=== PATIENT | male | born 1990 | race Caucasian/White ===

== ENCOUNTER 2018-10-30 21:28 | Emergency (ER) | payer SELFPAY ==
[2018-10-30] MEDS ORDERED: LEVETIRACETAM 500 MG/NACL-ISO 500 MG/100 ML RTUPB IV ONE (22:05)
[2018-10-30] MEDS ORDERED: NORMAL SALINE 500 ML IV ONE (22:06)
[2018-10-30 22:40] LABS: ABSOLUTE EOSINOPHILS # (AUTO) 0.1 10^3/uL (0.0-0.6); ABSOLUTE LYMPHOCYTES (AUTO) 1.7 10^3/uL (0.5-4.7); ABSOLUTE MONOCYTES (AUTO) 0.5 10^3/uL (0.1-1.4); ABSOLUTE NEUT (AUTO) 4.6 10^3/uL (1.7-8.2); BASOPHILS % (AUTO) 0.3 % (0-2); EOSINOPHILS % (AUTO) 0.9 % (0-6); HEMATOCRIT 50.1 % (37.9-51.0); HEMOGLOBIN 17.6 g/dL (13.5-17.0); LYMPHOCYTES % (AUTO) 24.6 % (13-45); MEAN CORPUSCULAR HEMOGLOBIN 32.3 pg (27.0-33.4); MEAN CORPUSCULAR VOLUME 92 fl (80-97); MONOCYTES % (AUTO) 7.4 % (3-13); PLATELET COUNT 331 10^3/uL (150-450); RED BLOOD COUNT 5.43 10^6/uL (4.35-5.55); RED CELL DISTRIBUTION WIDTH 14.1 % (11.5-14.0); SEGMENTED NEUTROPHILS % (AUTO) 66.8 % (42-78); TOTAL CELLS COUNTED % (AUTO) 100 %; WHITE BLOOD COUNT 6.9 10^3/uL (4.0-10.5)
[2018-10-30 22:43] LABS: ANION GAP 19 (5-19); BLOOD UREA NITROGEN 13 mg/dL (7-20); CALCIUM 8.6 mg/dL (8.4-10.2); CARBON DIOXIDE 19 mmol/L (22-30); CHLORIDE 108 mmol/L (98-107); GLUCOSE 105 mg/dL (75-110); POTASSIUM 3.7 mmol/L (3.6-5.0)
--- NOTE | 2018-10-30 22:45 | RADIOLOGY REPORT (SQ) ---
CLINICAL DATA: trauma TECHNICAL DATA: Multiple axial CT images of the brain were performed followed by sagittal and coronal reconstructed images. The CT study is performed according to ALARA (as low as reasonably achievable) or ALARA/IMAGE GENTLY, with automatic adjustment of mA and/or kV according to patient size. Performed on: 10/30/2018 at 10:12 PM Comparisons: None. FINDINGS: There is no evidence of mass, acute mass effect or midline shift. There are no acute extra-axial fluid collections. There is no evidence of acute intracranial hemorrhage. The cerebral sulci and ventricles are normal in size and configuration. There are no focal abnormal areas of increased or decreased attenuation. . There is no significant mucosal thickening of the paranasal sinuses. The mastoid air cells are clear. The orbital contents are grossly unremarkable. No acute osseous abnormalities are identified. No focal soft tissue abnormalities are identified. IMPRESSION: There is no evidence of acute intracranial pathology.
--- NOTE | 2018-10-30 22:48 | RADIOLOGY REPORT (SQ) ---
CLINICAL DATA: 27-year-old male status post trauma with neck pain. TECHNICAL DATA: Multiple high-resolution thin axial CT images were performed through the cervical spine followed by sagittal and coronal reconstructed images. The CT study is performed according to ALARA (as low as reasonably achievable) or ALARA/IMAGE GENTLY, with automatic adjustment of mA and/or kV according to patient size. Performed on: 10/30/2018 at 10:16 PM COMPARISONS: None. FINDINGS: The cervical vertebrae are normal in height. There is normal alignment of the vertebrae. The disc spaces are well preserved in height. Bone mineralization is normal. The atlanto-axial articulation is preserved and the odontoid process is intact. There is normal alignment of the facet joints on the parasagittal images. There are no significant degenerative changes of the cervical spine. There is no evidence of acute fracture or subluxation. There is no significant canal stenosis. There is no significant neural foraminal stenosis. The paravertebral and paraspinal soft tissues are unremarkable. The lung apices are clear. There are minimal paraseptal emphysematous changes. IMPRESSION: No evidence of acute osseous injury involving the cervical spine.
--- NOTE | 2018-10-30 22:55 | ER Document Report ---
ED General - General Chief Complaint: Probable Seizure Stated Complaint: POSSIBLE SEIZURE Time Seen by Provider: 10/30/18 22:03 Notes: Patient is a 27-year-old male who presents with complaints of a seizure. Currently patient cannot give any history as he is sedated from Ativan that was given to him in a month. Is probably also postictal. Apparently patient was having seizures when [facility] arrived and they gave him 5 mg of Ativan total. History is per report from the nurse who spoke with paramedics. Family patient has history of seizures whenever he drinks alcohol. Patient was actively seizing on [facility] arrived and gave him the Ativan. He has had no further seizure activity since then. No further history is known about the patient. It is unclear if patient fell and started seizing or if he was already on the ground when he started seizing. - Related Data Allergies/Adverse Reactions: No Known Allergies Allergy (Verified 10/31/18 00:32) Past Medical History - Social History Smoking Status: Unknown if Ever Smoked Frequency of alcohol use: unknown how often Drug Abuse: Other - unknown Family History: Reviewed & Not Pertinent Patient has suicidal ideation: No Patient has homicidal ideation: No Renal/ Medical History: Denies: Hx Peritoneal Dialysis Review of Systems - Review of Systems -: Yes ROS unobtainable due to patient's medical condition - patient currently sedated Physical Exam - Vital signs Vitals: Temp Resp Pulse Ox 98.1 F 21 H 96 10/30/18 21:33 10/30/18 21:33 10/30/18 21:33 - Notes Notes: General Appearance: She is currently sedated. He does have good gag reflex. He does respond some physically to sternal rub but does not respond verbally. He is in no distress. Vitals: reviewed, See vital signs table. Head: no swelling or tenderness to the head Eyes: PERRL, EOMI, Conjuctiva clear Mouth: No decreasd moisture Throat: No tonsillar inflammation, No airway obstruction, No lymphadenopathy Neck: Supple, no neck tenderness, patient has some scratches and redness to the right side of the neck. Lungs: No wheezing, No rales, No rhonci, No accessory muscle use, good air exchange bilaterally. Heart: Normal rate, Regular rythm, No murmur, no rub Abdomen: Normal BS, soft, No rigidity, he does not seem to flinch or show signs of pain when I push firmly on abdomen. Extremities: good pulses in all extremities, no swelling or tenderness in the extremities, no edema. Skin: warm, dry, appropriate color, no rash Neuro: Patient is currently sedated. He does have good gag reflex. He does respond some to painful stimuli. He does not make any verbal contributions at this time. Course - Re-evaluation Re-evalutation: 10/31/18 02:36 Patient currently resting comfortably. No further seizure activity. Vital signs have remained stable. 10/31/18 04:41 Patient is now awake and alert. He says that he does not remember at all what happened. He last members being at his hotel room. He says that he does not have a history of seizures however he seems to go back and forth about this. His ultimate response is that he is unsure if he is ever had a seizure in the past. He does not stricken symmetrical today. He does not drink alcohol on a daily basis. He denies any drug use. Denies recent fevers or infections. He says he otherwise feels well now has no further concerns or complaints. I did stand the patient to walk. He was at first a little wobbly in his feet but then did well. I will give him some clothes and some socks and agrees to bathroom and then reassess him to make sure that he is continuing to move around well. 10/31/18 05:52 Patient appears well and is fully awake and alert. I once again informed him the need to follow-up with neurologist and no driving until he is cleared from any underlying seizure disorder. I informed him he must return to ER if he has recurrent seizures or has any further concerns. Patient agrees with plan will be discharged home. Dictation of this chart was performed using voice recognition software; therefore, there may be some unintended grammatical errors. - Vital Signs Vital signs: Temp Pulse Resp BP Pulse Ox 98.1 F 16 111/57 L 96 10/30/18 21:33 10/31/18 05:05 10/31/18 03:00 10/31/18 05:05 - Laboratory Result Diagrams: 10/30/18 21:46 10/30/18 21:46 Laboratory results interpreted by me: 10/30/18 10/30/18 21:46 21:46 Hgb 17.6 H RDW 14.1 H Sodium 146.0 H Chloride 108 H Carbon Dioxide 19 L Discharge - Discharge Clinical Impression: Seizure Condition: Good Disposition: HOME, SELF-CARE Additional Instructions: Please avoid drinking large amounts of alcohol. You had a reported seizure tonight. You cannot drive until cleared by a neurologist. I have given you the phone number to the local neurologist, Dr. Mccall. Please call his office to make a close follow up appointment. Plesae return tot Er imemdiately if you have nay recurrent seizure activity. Forms: Return to Work Referrals: BUTCH MCCALL MD [ACTIVE STAFF] - Follow up in 3-5 days
[2018-10-31] MEDS ORDERED: NORMAL SALINE 1000 ML 1,000 ML IV ONE (00:05)
[2018-10-31 05:59] VITALS: BP 115/68
== END 2018-10-31 06:12 | disposition home or self-care (01) ==
LOC: ER 21:28
DX: R56.9 Unspecified convulsions (principal)
CPT/HCPCS: 99284; 96361; 96365; 36415; 80307; 83735; 85025; 80048; 70450; 72125; J7030; J7040; J1953